=== PATIENT | male | born 1975 | race Caucasian/White ===

== ENCOUNTER 2021-05-02 10:58 | Emergency (ER) | payer OTHER, SELFPAY ==
[2021-05-02 11:06] VITALS: BP 132/87; PULSE 106; RESP 24; TEMP 36.7; O2SAT 97; BMI 27.9
[2021-05-02 11:28] LABS: COVID19 -Nasal RAPID POSITIVE (Negative)
[2021-05-02 12:42] LABS: Add Manual Diff / Slide Review NO; Basophils Absolute Auto 0 /uL (0-100); Basophils Percent Auto 0.2 % (0-2); Eosinophils Absolute Auto 0 /uL (0-450); Hematocrit 44.5 % (41-53); Hemoglobin 15.5 g/dL (13.5-17.5); Lymphocytes Absolute Auto 700 /uL (1100-4500); Lymphocytes Percent Auto 8.8 % (25-40); Mean Corpuscular HGB Conc 34.7 % (30-36); Mean Corpuscular Hemoglobin 29.7 PG (26-34); Mean Corpuscular Volume 85.6 fL (80-100); Monocytes Absolute Auto 1200 /uL (0-900); Monocytes Percent Auto 15.2 % (3-14); Neutrophils Absolute Auto 5800 /uL (1500-7000); Neutrophils Percent Auto 75.8 % (50-75); Platelet Count 197 X10^3/uL (150-400); Red Cell Distribution Width 12.8 % (11.6-14.8); White Blood Cell Count 7.6 X10^3/uL (4.5-11.0)
[2021-05-02] MEDS: SODIUM CHLORIDE 0.9% 1,000 ML 1000 ML IV (12:42)
[2021-05-02] MEDS: KETOROLAC 30 MG/ML VIAL 15 MG IV (12:42)
--- NOTE | 2021-05-02 12:59 | ED.URI ---
HPI - URI/Sore Throat General Chief Complaint: Upper Respiratory Symptoms Stated Complaint: COVID+ trouble swallowing, dehydrated Time Seen by Provider: 05/02/21 11:55 Source: patient Mode of arrival: Ambulatory History of Present Illness HPI Narrative: Patient is a 45-year-old male who presents with sore throat ongoing for the last 4 days. Everyone in his house has COVID. He is unvaccinated. He states that he is dehydrated and unable to swallow. He says he has trouble swallowing ibuprofen. But he has been taking Tylenol and ibuprofen. He complains of body aches, no cough or congestion. Overall feels poorly. Related Data Home Medications Medication Instructions Recorded Confirmed No Known Home Medications 05/02/21 05/02/21 Allergies Allergy/AdvReac Type Severity Reaction Status Date / Time No Known Drug Allergies Allergy Verified 05/02/21 11:10 Review of Systems Review of Systems Narrative: GENERAL: Denies chills, fatigue, malaise, fever, sweats, travel HEENT: See HPI RESPIRATORY: Denies dyspnea, cough, wheezing, hemoptysis, sputum. CARDIOVASCULAR: Denies chest pain, palpitations, orthopnea, edema GASTROINTESTINAL: Denies nausea, vomiting, abdominal pain, diarrhea, constipation, melena. : Denies dysuria, frequency, incontinence, hematuria, urinary retention, flank pain. MUSCULOSKELETAL: Denies weakness, joint pain, or bony pain SKIN: No rash, no erythema, no pruritus NEUROLOGIC: Denies weakness, dizziness, headache, numbness, change in speech, confusion PSYCHIATRIC: No concerning psychosocial issues. 12 point review of systems is negative except for those stated above and HPI Patient History Family History (Updated 08/09/17 @ 00:00 by Conversion Provider) Mother Age: 69 Colon polyps Grandmother Age: 88 Brain aneurysm Social History Smoking Status: Never smoker Smoking Status: Never smoker alcohol intake frequency: 3 or more drinks per day Substance Use Type: does not use Exam Initial Vital Signs Initial Vital Signs: Vital Signs Temperature 98.1 F 05/02/21 11:06 Pulse Rate 106 H 05/02/21 11:06 Respiratory Rate 24 05/02/21 11:06 Blood Pressure 132/87 05/02/21 11:06 Pulse Oximetry 97 05/02/21 11:06 GENERAL: Alert 45-year-old male in no acute distress. HEENT: Head atraumatic,EOMI, pupils reactive, face symmetric, moist mucous membranes PHARYNX:No erythema, no tonsillar exudate, no cervical lymphadenopathy CARDIOVASCULAR: Regular rate and rhythm without murmurs, rubs or gallops. RESPIRATORY: Breath sounds equal bilaterally, no wheezes rales or rhonchi. EXTREMITIES: Normal range of motion, no clubbing or edema. Neurovascularly intact NEUROLOGICAL: Alert and oriented x4. SKIN: Warm, dry, no laceration, no petechiae, no rashes or lesions. Course Orders Ordered: Discontinued Medications Sodium Chloride (Normal Saline 0.9%) 1,000 mls @ 1,000 mls/hr IV BOLUS ONE Stop: 05/02/21 12:55 Last Infusion: 05/02/21 13:41 Dose: 0 mls/hr Documented by: Admin: 05/02/21 12:42 Dose: 1,000 mls/hr Documented by: CALLIE Ketorolac Tromethamine (Ketorolac 30 Mg/Ml Vial) 15 mg IV NOW ONE Stop: 05/02/21 12:35 Last Admin: 05/02/21 12:42 Dose: 15 mg Documented by: CALLIE Vital Signs Vital signs: Vital Signs - 8 hr 05/02/21 11:06 Temperature 98.1 F Pulse Rate 106 H Respiratory Rate 24 Blood Pressure 132/87 Pulse Oximetry 97 MDM - URI/Sore Throat Lab Data Result diagrams: 05/02/21 12:28 05/02/21 12:28 Labs: Lab Results 05/02/21 05/02/21 05/02/21 Range/Units 11:11 12:28 12:28 WBC 7.6 (4.5-11.0) X10^3/uL RBC 5.20 (4.5-5.9) X10^6/uL Hgb 15.5 (13.5-17.5) g/dL Hct 44.5 (41-53) % MCV 85.6 (80-100) fL MCH 29.7 (26-34) PG MCHC 34.7 (30-36) % RDW 12.8 (11.6-14.8) % Plt Count 197 (150-400) X10^3/uL Neut % (Auto) 75.8 H (50-75) % Lymph % (Auto) 8.8 L (25-40) % [place] % (Auto) 15.2 H (3-14) % Eos % (Auto) 0.0 L (2-4) % Baso % (Auto) 0.2 (0-2) % Neut # (Auto) 5800 (9150-4184) /uL Lymph # (Auto) 700 L (3034-0278) /uL [place] # (Auto) 1200 H (0-900) /uL Eos # (Auto) 0 (0-450) /uL Baso # (Auto) 0 (0-100) /uL Sodium 136 L (137-145) mmol/L Potassium 4.3 (3.4-5.1) mmol/L Chloride 100 (98-107) mmol/L Carbon Dioxide 29 (22-32) mmol/L BUN 10 (9-20) mg/dL Creatinine 0.92 (0.66-1.25) mg/dL Estimated GFR > 60.0 (>60) mL/min BUN/Creatinine Ratio 10.9 (6-22) Glucose 108 H (70-100) mg/dL Calcium 9.3 (8.4-10.2) mg/dL Total Bilirubin 0.7 (0.2-1.3) mg/dL AST 46 (17-59) IU/L ALT 85 H (<50) IU/L Alkaline Phosphatase 37 L (38-126) U/L Total Protein 7.7 (6.3-8.2) g/dL Albumin 4.8 (3.5-5.0) g/dL Globulin 2.9 (1.7-4.1) g/dL Albumin/Globulin Ratio 1.7 (1.0-2.8) Lipase 52 (23-300) U/L SARS-CoV-2 (PCR) Positive H (Negative) Point of Care Testing Rapid Strep A Negative MDM Narrative Medical decision making narrative: Patient is mildly tachycardic afebrile with COVID positive. He is given 1 L of fluid and he is overall feeling better. Discussed with him home care and when to return to the emergency department. Blood work is overall reassuring no sign of significant dehydration Discharge Plan Departure Patient Disposition: Home Clinical Impression: COVID-19 Instructions: DI for COVID-19 (Suspected or Confirmed ) Activity Restrictions/Additional Instructions: * if you have not yet been vaccinated is still recommended and encouraged that you do so once your infection has passed *Follow up with your primary provider in 2-3 days or call [phone] -Motrin 800mg every 8 hours -Tylenol 1000 mg every 6 hours -increase fluid intake recommend Gatorade or Gatorade like product, Jell-O applesauce, broth, smoothies, honey +tea AT HOME: -Monitor oxygen with pulse oximeter. If less than 90% for more than 1 hour please return to emergency department -I recommend lying on stomach for side rather than back, it has been proven to increase oxygen levels -Wash hands frequently. -Stay isolated at home please follow the isolation instructions below. -Increase fluid intake. -you may take Tylenol as directed if needed for pain or fever EMERGENCY warning signs for COVID-19: - Difficulty breathing or shortness of breath, oxygen less than 90% - Persistent pain or pressure in the chest - New confusion or inability to arouse - Bluish lips or face CDC Guidelines for home isolation: - Stay away from others - Limit contact with pets and animals: If you must care for a pet, wash your hands before and after interacting with them - Wear a mask while in public all places - Cover your mouth and nose with a tissue when you cough or sneeze. Dispose of tissues in a lined trash can and wash your hands immediately with soap and water for at least 20 seconds. If soap and water are not available, clean hands with alcohol-based hand medical office specialist that contains at least 60% alcohol. - Clean your hands often with soap and water for at least 20 seconds - Avoid touching your eyes, nose and mouth with unwashed hands - Do not share dishes, drinking glasses, cups, eating utensils, towels, or bedding with other people in your home. After using these items, wash them thoroughly with soap and water or put in the wood carver hand. - Clean high-touch surfaces in your isolation area (?sick room? and bathroom) every day; let a caregiver clean and disinfect high-touch surfaces in other areas of the home. Clean the area or item with soap and water or another detergent if it is dirty. Then, use a household disinfectant. Prescriptions: No Action No Known Home Medications 0RF Referrals: Glenn Gagnon MD [Primary Care Provider] -
[2021-05-02 13:00] LABS: Alanine Aminotransferase 85 IU/L (<50); Albumin 4.8 g/dL (3.5-5.0); Albumin Globulin Ratio 1.7 (1.0-2.8); Alkaline Phosphatase 37 U/L (38-126); Aspartate Aminotransferase 46 IU/L (17-59); BUN Creatinine Ratio 10.9 (6-22); Bilirubin Total 0.7 mg/dL (0.2-1.3); Blood Urea Nitrogen 10 mg/dL (9-20); Calcium 9.3 mg/dL (8.4-10.2); Carbon Dioxide 29 mmol/L (22-32); Chloride 100 mmol/L (98-107); Estimated Glomerular Filt Rate > 60.0 mL/min (>60); Globulin 2.9 g/dL (1.7-4.1); Glucose 108 mg/dL (70-100); HEMOLYSIS 16 (0-50); Lipase 52 U/L (23-300); Potassium 4.3 mmol/L (3.4-5.1); Sodium 136 mmol/L (137-145); Total Protein 7.7 g/dL (6.3-8.2)
[2021-05-02 13:21] VITALS: PULSE 92; O2SAT 96
[2021-05-02 13:22] VITALS: BP 124/73; PULSE 93; O2SAT 96
--- NOTE | 2021-05-02 13:23 | PC.NURSE ---
Pt states torodol did help sore throat. receiving fluids at this time IV. offered ice chips, water, coffee, or tea and pt declined. BP 124/83, HR 91 and regular. appears well. resting on stretcher. NAD
[2021-05-02 13:30] VITALS: PULSE 94; O2SAT 97
== END 2021-05-02 14:00 | disposition home or self-care (01) ==
PROVIDERS: Emergency Provider Emergency Medicine; PCP Family Medicine
DX: U07.1 COVID-19 (principal); E86.0 Dehydration
CPT/HCPCS: 36415; 80053; 83690; 85025; 87635; 87880; 96361; 96374; 99284; C9803; J1885

== ENCOUNTER 2023-02-14 17:53 | Emergency (ER) | payer OTHER, SELFPAY ==
[2023-02-14 18:01] VITALS: BP 147/93; PULSE 85; RESP 18; TEMP 37.2; O2SAT 98; BMI 27.2
[2023-02-14 20:52] VITALS: BP 134/77; PULSE 78; RESP 20; TEMP 36.6; O2SAT 98
--- NOTE | 2023-02-14 21:08 | ED.SKABFB ---
HPI - Skin/Abscess/Foreign Bdy General Chief complaint: Skin/Abscess/Foreign Body Stated complaint: Left side lymph nodes swelling in neck Time Seen by Provider: 02/14/23 18:40 Source: patient Mode of arrival: Ambulatory Limitations: no limitations History of Present Illness HPI narrative: 47-year-old male with chronic alcohol use who presents with swelling of the left jaw below the ear and neck. Patient states it is mildly tender. It is painful to open his mouth. He states it just started today. He denies fevers or chills. He has not had any foul taste. He states chewing does make it more uncomfortable. He is not had similar issues in the past. He denies fevers or chills. No swelling of the tongue, airway or underneath the chin. Patient states no ear pain. He has not had any redness or skin changes he is noted. He states there seems to maybe be a big lymph node but he does not feel fluid collection. Patient denies any chest pain or shortness of breath, no nausea or vomiting no other GI or urinary symptoms. Denies any daily medications. No prior surgeries. No tobacco, drinks proximally 7 drinks daily, no recreational drugs. Accompanied by family today. Related Data Previous Rx's Medication Instructions Recorded amoxicillin 875 mg-potassium 1 tab PO Q12H #20 tabs 02/14/23 clavulanate 125 mg tablet Allergies Allergy/AdvReac Type Severity Reaction Status Date / Time No Known Drug Allergies Allergy Verified 05/02/21 11:10 Review of Systems Review of Systems ROS Unobtainable: All systems reviewed & are unremarkable except as noted in HPI and below Patient History Family History Mother Age: 71 Colon polyps Grandmother Age: 90 Brain aneurysm Social History Smoking Status: Never smoker Smoking Status: Never smoker alcohol intake frequency: 3 or more drinks per day Alcohol type: other Substance Use Type: does not use Exam Narrative Exam Narrative: GEN: well nourished, well appearing male, alert and oriented x 3, patient appears to be in mild distress. HEENT: Atraumatic, pupils are equal round reactive to light, extraocular movements are intact, nares are clear, TMs are clear with no fluid, there is no conjunctival pallor. Throat is clear without any exudates, erythema, tonsillar enlargement or uvular deviation, patient has swelling over the angle of the mandible, extending under the inferior portion of the ear, and slightly down into the neck. Does not really have any swelling submandibularly. Does extend slightly over the parotid region. Is localized only in the left. No pain with movement of the ear, ear exam is normal. No discernible palpable nodes, fluid collections is slightly tender to touch. Significant cervical lymphadenopathy appreciated. Patient no swelling of the tongue, no obvious drainage from the ducts intraorally, no tenderness over the bone or teeth. No swelling of the tongue or oropharynx appreciated. Some slight swelling of the inner cheek HEART: Regular rate and rhythm without murmur, clicks, rubs. No carotid bruits LUNGS:Lungs clear to auscultation, no wheezes, rales, crackles, chest moves symmetrically ABD:bowel sounds normal, soft, non-tender, no guarding, rebound, rigidity, no masses noted, no hepatosplenomegaly MSCL: Non-tender, no muscle atrophy, muscles strength 5/5 upper and lower extremities, full range of motion, normal gait NEURO:CN 2-12 intact, sensation normal SKIN: No rash, erythema or other skin changes noted Initial Vital Signs Initial Vital Signs: Vital Signs Temperature 99 F 02/14/23 18:01 Pulse Rate 85 02/14/23 18:01 Respiratory Rate 18 02/14/23 18:01 Blood Pressure 147/93 H 02/14/23 18:01 Pulse Oximetry 98 02/14/23 18:01 Oxygen Delivery Method Room Air 02/14/23 18:01 Course Orders Ordered: ED Orders 02/14/23 21:15 US soft tissue head and neck Stat 02/14/23 21:27 CBC Auto Diff [Complete Blood Count AUTO DIFF] Stat CMP [Comprehensive Metabolic Panel] Stat Procalcitonin Stat Discontinued Medications Dexamethasone (Dexamethasone 10 Mg/Ml Vial) 10 mg IV NOW ONE Stop: 02/14/23 21:16 Last Admin: 02/14/23 21:44 Dose: 10 mg Documented By: AMEENA Ampicillin Sodium/Sulbactam (Sodium 3 gm/ Sodium Chloride) 100 mls @ 200 mls/hr IV NOW ONE Stop: 02/14/23 21:16 Last Infusion: 02/14/23 23:05 Dose: Infused Documented By: Infusion: 02/14/23 22:10 Dose: 200 mls/hr Documented By: Infusion: 02/14/23 21:45 Dose: 0 mls/hr Documented By: Admin: 02/14/23 21:44 Dose: 200 mls/hr Documented By: AMEENA Sodium Chloride (Normal Saline 0.9%) 1,000 mls @ 1,000 mls/hr IV BOLUS ONE Stop: 02/14/23 22:16 Last Infusion: 02/14/23 23:05 Dose: Infused Documented By: Infusion: 02/14/23 22:09 Dose: 1,000 mls/hr Documented By: Infusion: 02/14/23 21:45 Dose: 0 mls/hr Documented By: Admin: 02/14/23 21:45 Dose: 1,000 mls/hr Documented By: AMEENA Vital Signs Vital signs: Vital Signs - 8 hr 02/14/23 20:52 02/14/23 22:08 02/14/23 22:08 Temperature 97.9 F Pulse Rate 78 84 Respiratory Rate 20 Blood Pressure 134/77 136/81 Pulse Oximetry 98 96 Oxygen Delivery Method Room Air Room Air 02/14/23 22:30 02/14/23 22:30 02/14/23 22:46 Temperature Pulse Rate 78 Respiratory Rate Blood Pressure 129/78 Pulse Oximetry 97 96 Oxygen Delivery Method Room Air 02/14/23 23:00 Temperature Pulse Rate Respiratory Rate Blood Pressure 135/86 Pulse Oximetry Oxygen Delivery Method MDM - Skin/Abscess/Foreign Bdy Lab Data 02/14/23 21:27 02/14/23 21:27 Labs: Lab Results 02/14/23 Range/Units 21:27 WBC 10.3 (4.5-11.0) X10^3/uL RBC 5.16 (4.5-5.9) X10^6/uL Hgb 15.4 (13.5-17.5) g/dL Hct 44.1 (41-53) % MCV 85.5 (80-100) fL MCH 29.8 (26-34) PG MCHC 34.8 (30-36) % RDW 12.8 (11.6-14.8) % Plt Count 250 (150-400) X10^3/uL Neut % (Auto) 80.7 H (50-75) % Lymph % (Auto) 10.4 L (25-40) % [place] % (Auto) 8.1 (3-14) % Eos % (Auto) 0.4 L (2-4) % Baso % (Auto) 0.4 (0-2) % Neut # (Auto) 8300 H (0724-0770) /uL Lymph # (Auto) 1100 (1378-9355) /uL [place] # (Auto) 800 (0-900) /uL Eos # (Auto) 0 (0-450) /uL Baso # (Auto) 0 (0-100) /uL Sodium 135 L (137-145) mmol/L Potassium 4.1 (3.4-5.1) mmol/L Chloride 95 L (98-107) mmol/L Carbon Dioxide 28 (22-32) mmol/L BUN 10 (9-20) mg/dL Creatinine 0.87 (0.66-1.25) mg/dL Estimated GFR > 60 (>60) mL/min BUN/Creatinine Ratio 11.5 (6-22) Glucose 121 H (70-100) mg/dL Calcium 10.4 H (8.4-10.2) mg/dL Total Bilirubin 0.8 (0.2-1.3) mg/dL AST 47 (17-59) IU/L ALT 86 H (<50) IU/L Alkaline Phosphatase 45 (38-126) U/L Total Protein 8.2 (6.3-8.2) g/dL Albumin 4.9 (3.5-5.0) g/dL Globulin 3.3 (1.7-4.1) g/dL Albumin/Globulin Ratio 1.5 (1.0-2.8) Procalcitonin 0.09 (<0.5) ng/mL MDM Narrative Medical decision making narrative: 47-year-old male presents with swelling of the left side of the neck just below the ear and over the angle of the mandible. Suspect possible parotitis, sialoadenitis, abscess or infection, mass seems less likely as it just showed up in the last day. Does not appear to be acutely infected over the skin. Plan for labs, IV, dose oral steroid antibiotic with ultrasound of the soft tissue to evaluate for mass, stone or fluid collection/infection. Patient airway appears quite intact without any issues currently. Labs reviewed, ultrasound shows changes consistent with proctitis, no obvious stone, abscess or fluid collection. Discussed with patient will treat for bacterial parotitis but can be viral causes. Patient felt appropriate for discharge, discussed return precautions and signs and symptoms to watch for. If symptoms are not progressing but not resolving to follow up with ENT and referral was given. Discharge Plan Departure Patient Disposition: Home Clinical Impression: Acute parotitis Instructions: DI for Parotitis-Adult Activity Restrictions/Additional Instructions: Please follow-up for recheck with ENT if your symptoms are persisting despite treatment. You may take Tylenol up to a 1000 mg and/or ibuprofen up to 600 mg every 6 hours as needed for pain. Use warm compresses to the affected area, gargle with warm water and salt 4 times daily. Take antibiotics until completed. Prescription [facility] to [facility]. Please return for fevers, rapidly worsening swelling, swelling of the tongue, airway, sending across the neck. Changes to voice, hoarseness or muffled voice. Difficulty with swallowing. Nausea or vomiting, lightheadedness or passing out or other new or concerning changes. Prescriptions: New amoxicillin-pot clavulanate 875-125 mg tablet 1 tab PO Q12H Qty: 20 0RF Referrals: Kory Saxena MD [Physician] - Cori Gagnon ARNP [Primary Care Provider] - Stand Alone Forms: Patient Portal/API
--- NOTE | 2023-02-14 21:15 | DI.US.S_ITS ---
PROCEDURE: US SOFT TISSUE HEAD AND NECK INDICATIONS: swelling posterior jaw/below ear, acute today, on mild pain TECHNIQUE: Real-time scanning was performed of the neck region of interest, with image documentation. COMPARISON: None. FINDINGS: Focused ultrasound examination of left parotid gland shows enlarged and edematous appearing left parotid gland measures 5.7 x 3.2 x 3.8 cm in size with increased internal vascularity. No abnormal calcification is seen. No discrete parotid mass is noted. IMPRESSION: Finding is suggestive of left-sided parotitis. Clinical correlation and follow-up is recommended. Dictated by: Toy Damon M.D. on 02/14/2023 at 22:09 Approved by: Toy Damon M.D. on 02/14/2023 at 22:11
[2023-02-14 21:37] LABS: Add Manual Diff / Slide Review NO; Basophils Absolute Auto 0 /uL (0-100); Basophils Percent Auto 0.4 % (0-2); Eosinophils Absolute Auto 0 /uL (0-450); Eosinophils Percent Auto 0.4 % (2-4); Hematocrit 44.1 % (41-53); Hemoglobin 15.4 g/dL (13.5-17.5); Lymphocytes Absolute Auto 1100 /uL (1100-4500); Lymphocytes Percent Auto 10.4 % (25-40); Mean Corpuscular HGB Conc 34.8 % (30-36); Mean Corpuscular Hemoglobin 29.8 PG (26-34); Mean Corpuscular Volume 85.5 fL (80-100); Monocytes Absolute Auto 800 /uL (0-900); Monocytes Percent Auto 8.1 % (3-14); Neutrophils Absolute Auto 8300 /uL (1500-7000); Neutrophils Percent Auto 80.7 % (50-75); Platelet Count 250 X10^3/uL (150-400); Red Blood Cell Count 5.16 X10^6/uL (4.5-5.9); Red Cell Distribution Width 12.8 % (11.6-14.8); White Blood Cell Count 10.3 X10^3/uL (4.5-11.0)
[2023-02-14] MEDS: AMPICILLIN/SULBACTAM 3 GM 3 GM in SODIUM CHLORIDE 0.9% 100 ML IV (21:44)
[2023-02-14] MEDS: DEXAMETHASONE 10 MG/ML VIAL IV (21:44)
[2023-02-14] MEDS: SODIUM CHLORIDE 0.9% 1,000 ML 1000 ML IV (21:45)
[2023-02-14 21:49] LABS: Alanine Aminotransferase 86 IU/L (<50); Albumin 4.9 g/dL (3.5-5.0); Albumin Globulin Ratio 1.5 (1.0-2.8); Alkaline Phosphatase 45 U/L (38-126); Aspartate Aminotransferase 47 IU/L (17-59); BUN Creatinine Ratio 11.5 (6-22); Bilirubin Total 0.8 mg/dL (0.2-1.3); Blood Urea Nitrogen 10 mg/dL (9-20); Calcium 10.4 mg/dL (8.4-10.2); Carbon Dioxide 28 mmol/L (22-32); Chloride 95 mmol/L (98-107); Estimated Glomerular Filt Rate > 60 mL/min (>60); Globulin 3.3 g/dL (1.7-4.1); Glucose 121 mg/dL (70-100); HEMOLYSIS 17 (0-50); Potassium 4.1 mmol/L (3.4-5.1); Sodium 135 mmol/L (137-145); Total Protein 8.2 g/dL (6.3-8.2)
[2023-02-14 22:05] LABS: Procalcitonin 0.09 ng/mL (<0.5)
[2023-02-14 22:08] VITALS: BP 136/81; PULSE 84; O2SAT 96
[2023-02-14 22:30] VITALS: BP 129/78; PULSE 78; O2SAT 97
[2023-02-14 22:46] VITALS: O2SAT 96
[2023-02-14 23:00] VITALS: BP 135/86
== END 2023-02-14 23:06 | disposition home or self-care (01) ==
PROVIDERS: Emergency Provider Emergency Medicine; PCP Internal Medicine
DX: K11.21 Acute sialoadenitis (principal)
CPT/HCPCS: 36415; 76536; 80053; 84145; 85025; 96365; 96375; 99284; J0295; J1100